=== PATIENT | male | born 1965 | race Caucasian/White ===

== ENCOUNTER 2017-04-30 09:10 | Emergency (ER) | payer OTHER ==
[2017-04-30 09:36] VITALS: BP 141/106
--- NOTE | 2017-04-30 10:32 | EDM.PDOC ---
[id number] Complaint: RIGHT FOOT INJURY WHILE WATER SKIING Time Seen by Provider: 04/30/17 09:50 Source of Information: Reports: Patient History Limitations: Reports: No Limitations - History of Present Illness INITIAL COMMENTS - FREE TEXT/NARRATIVE: 52-year-old male injured his right foot last night while water skiing. The right foot turned while he fell, he felt and heard a pop in his foot and today it is swollen, ecchymotic, and he is having extreme difficulty bearing any weight. No other injury. Onset: Sudden Duration: Day(s): (Just less than one day) Quality: Reports: Ache, Sharp Severity: Moderate Worsens with: Reports: Other (Much worse with weight bearing) Right Ankle Pain Score (Numeric/FACES): 10 - Related Data Allergies Allergy/AdvReac Type Severity Reaction Status Date / Time No Known Allergies Allergy Verified 04/30/17 09:50 Home Meds: Home Meds Hydrocodone/Acetaminophen [Hydrocodon-Acetaminophen 5-325] 1 tab PO Q6HR PRN 07/09 [History] Lisinopril/Hydrochlorothiazide [Lisinopril-Hctz 20-25 mg Tab] 1 tab PO DAILY 07/09 [History] atorvaSTATin [Lipitor] 10 mg PO ONETIME 04/30/17 [History] Past Medical History Cardiovascular History: Reports: High Cholesterol, Hypertension Review of Systems - Review of Systems Review Of Systems: See Below Constitutional: Denies: Fever Respiratory: Denies: Shortness of Breath GI/Abdominal: Denies: Abdominal Pain Skin: Reports: Bruising Psychiatric: Reports: No Symptoms ED EXAM, GENERAL - Physical Exam Exam: See Below Exam Limited By: No Limitations General Appearance: Alert, No Apparent Distress Respiratory/Chest: No Respiratory Distress Extremities: Other (Exam is limited to the right lower extremity. He has no pain over the proximal fibula or around the knee. His distal fibula and tibia are nontender to palpation. He is intensely painful through the mid foot with ecchymosis and swelling) Neurological: Alert, Oriented Psychiatric: Normal Affect, Normal Mood Skin Exam: Other (There is swelling and ecchymosis around the right forefoot) Course - Vital Signs Last Recorded V/S: Last Vital Signs Temp 98.4 F 04/30/17 09:39 Pulse 72 04/30/17 09:39 Resp 16 04/30/17 09:39 BP 141/106 H 04/30/17 09:39 Pulse Ox 95 04/30/17 09:39 - Orders/Labs/Meds Orders: Active Orders 24 hr Category Date Time Status DME for Discharge [COMM] Stat Oth 04/30/17 10:25 Ordered - Re-Assessments/Exams Free Text/Narrative Re-Assessment/Exam: 04/30/17 10:30 X-rays of the right foot and right ankle were obtained. He appears to have an avulsion fracture off the lateral aspect of the tarsals, it's unclear its origin. A four-inch Srinivas wrap was applied to the foot, the patient was provided with crutches, copies of his x-rays, and should recheck when home with orthopedics as he likely needs a CT or MRI of the foot. Departure - Departure Time of Disposition: 11:30 Disposition: Home, Self-Care 01 Condition: good Clinical Impression: Fractured tarsal bone Qualifiers: Encounter type: initial encounter Tarsal bone: unspecified tarsal bone Fracture type: closed Fracture alignment: displaced Laterality: right Qualified Code(s): S92.201A - Fracture of unspecified tarsal bone(s) of right foot, initial encounter for closed fracture - Discharge Information Instructions: Tarsal Navicular Fracture Referrals: PCP,None [Primary Care Provider] - Forms: ED Department Discharge Care Plan Goals: Use crutches, Srinivas wrap the foot and elevate the foot until rechecked. Ibuprofen or naproxen will help, and stronger pain medications if needed as prescribed. Recheck with orthopedics early next week if not improving satisfactorily, you may need further imaging studies. - My Orders Last 24 Hours: My Active Orders 04/30/17 10:25 DME for Discharge [COMM] Stat - Assessment/Plan Last 24 Hours: My Active Orders 04/30/17 10:25 DME for Discharge [COMM] Stat
--- NOTE | 2017-04-30 10:40 | CR ---
Right foot and ankle. Findings: There is a corticated bone fragment adjacent to the medial malleolus. There is no subcutaneous fract ure. There corticated bone fragments along the medial and lateral aspects of the mid foot. There is mild irregularity of the fragment laterally which raises the possibility of a possible avulsion fracture. The remaining bones are intact. Impression: 1. Probable accessory ossicle at the lateral aspect of the midfoot. Clinical correlation recommended as to whether there is focal pain at this site. If there is focal pain CT could provide additional information. 2. 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
== END 2017-04-30 10:55 | disposition home or self-care (01) ==
LOC: JP.ED 09:10
DX: S92.201A Fracture of unspecified tarsal bone(s) of right foot, initial encounter for closed fracture (principal); I10 Essential (primary) hypertension; E78.00 Pure hypercholesterolemia, unspecified; W19.XXXA Unspecified fall, initial encounter; Y93.17 Activity, water skiing and wake boarding
CPT/HCPCS: 73610-26-RT; 73610-RT; 73630-26-RT; 73630-RT; 99283